=== PATIENT | female | born 1980 | race Caucasian/White ===

== ENCOUNTER → 2016-10-27 | Outpatient (CLI) | payer OTHER ==
[~2016-10-27] MED LIST: MULT-506 PO
[2016-10-27 10:58] LABS: BASO % 0.2 %; BASO ABS # 0.02 K/uL (0-0.2); COMPLETE YES; EOS % 0.6 %; HEMATOCRIT 36.8 % (37-47); IG% 0.3 %; LYMPH % 22.5 %; MEAN CORPUSCULAR HGB CONC 33.7 g/dl (32-36); MEAN PLATELET VOLUME 10.5 fL (7.4-10.4); MONO % 4.3 %; NEUT % 72.1 %; PLATELET COUNT 217 K/uL (130-400)
[2016-10-27 11:38] LABS: GTGD 50 Grams
== END | disposition home or self-care (01) ==
LOC: C.LAB 08:07
PROVIDERS: ATTEND Obstetrics & Gynecology
DX: Z34.82 Encounter for supervision of other normal pregnancy, second trimester (principal)

== ENCOUNTER → 2016-11-16 | Outpatient (CLI) | payer OTHER | END | disposition home or self-care (01) | LOC: C.LAB 08:20 | PROVIDERS: ATTEND Obstetrics & Gynecology | DX: Z34.82 Encounter for supervision of other normal pregnancy, second trimester (principal); Z13.89 Encounter for screening for other disorder ==

== ENCOUNTER → 2017-01-08 | Day surgery (SDC) | payer OTHER ==
[~2017-01-08] VITALS: Ht 149.9 cm; Wt 66.0 kg
[2017-01-08 13:06] VITALS: BP 115/78; PULSE 96; TEMP 36.6; O2SAT 99; Ht 149.9 cm; Wt 66.0 kg
== END | disposition home or self-care (01) ==
LOC: C.MTU 10:31
PROVIDERS: ATTEND Obstetrics & Gynecology
DX: O36.0990 Maternal care for other rhesus isoimmunization, unspecified trimester, not applicable or unspecified (principal); Z3A.00 Weeks of gestation of pregnancy not specified

== ENCOUNTER → 2017-03-04 | Outpatient (CLI) | payer OTHER | END | disposition home or self-care (01) | LOC: C.LABSPEC 17:18 | PROVIDERS: ATTEND Obstetrics & Gynecology | DX: Z34.83 Encounter for supervision of other normal pregnancy, third trimester (principal) ==

== ENCOUNTER 2017-03-26 09:15 | Inpatient (IN) | payer OTHER ==
[~2017-03-26] VITALS: Ht 149.9 cm; Wt 69.5 kg
[2017-03-26 09:57] VITALS: Ht 149.9 cm; Wt 69.5 kg
[2017-03-26] MEDS ORDERED: LACTATED RINGER'S 1000ML 1,000 ML IV PRN (12:18)
[2017-03-26] MEDS ORDERED: MISOPROSTOLTAB 50 MCG TAB PO ONE (12:30)
[2017-03-26 12:44] LABS: MEAN CELL VOLUME 92.8 fL (80-100); MEAN CORPUSCULAR HEMOGLOBIN 30.2 pg (25-34); MEAN CORPUSCULAR HGB CONC 32.6 g/dl (32-36); MEAN PLATELET VOLUME 11.4 fL (7.4-10.4); PLATELET COUNT 179 K/uL (130-400); RED BLOOD COUNT 3.77 M/uL (4.2-5.4)
[2017-03-26] MEDS ORDERED: DINOPROSTONE 10 MG INSERT PV ONE (12:45)
[2017-03-27] MEDS: LACTATED RINGER'S 1000ML 1,000 ML IV SCH ×2 (01:15→04:28)
[2017-03-27] MEDS ORDERED: BUPIVACAINE 0.25% 30 ML VIAL ONE (01:43)
[2017-03-27] MEDS ORDERED: FENTANYL CITRATE INJ 50 MCG/1 ML 2 ML VIAL ONE (01:44)
[2017-03-27] MEDS ORDERED: EpHEDrine SULFATE INJ 50 MG/ML AMP ONE (01:44)
[2017-03-27] MEDS ORDERED: FENTANYL 2MCG/ML ROPIV 1.25MG/ML 100ML BAG EPI ONE (01:44)
[2017-03-27] MEDS ORDERED: LACTATED RINGER'S 1000ML 500 ML IV PRN ×2 (02:19→05:30)
[2017-03-27] MEDS ORDERED: NALOXONE HCL INJ 1 MG in SODIUM CHLORIDE 0.9% 1000ML 1,000 ML IV PRN (02:19)
[2017-03-27] MEDS ORDERED: OXYTOCIN 30 UNITS/500ML NSS IV ONE (02:25)
[2017-03-27] MEDS ORDERED: DiphenhydrAMINE HCL 50 MG/ML VIAL IV PRN (02:30)
[2017-03-27] MEDS ORDERED: NALBUPHINE HCL INJ 10 MG/ML AMP IV PRN (02:30)
[2017-03-27] MEDS ORDERED: NALOXONE HCL INJ 0.4 MG/1 ML VIAL/CARP IV PRN (02:30)
[2017-03-27] MEDS ORDERED: ONDANSETRON INJ 2 MG/ML 2 ML VIAL IV PRN (02:30)
[2017-03-27] MEDS ORDERED: EpHEDrine SULFATE INJ 50 MG/ML AMP IV PRN (02:30)
[2017-03-27] MEDS ORDERED: FENTANYL 2MCG/ML ROPIV 1.25MG/ML 100ML BAG EPI PRN (02:30)
[2017-03-27] MEDS ORDERED: OXYTOCIN 30 UNITS/500ML NSS IV PRN ×2 (05:30→07:15)
[2017-03-27] MEDS ORDERED: ACETAMINOPHEN 325 MG TAB PO PRN (07:15)
[2017-03-27] MEDS ORDERED: BENZOCAINE 20% AER SPR 82.5 GM CAN EXT PRN (07:15)
[2017-03-27] MEDS ORDERED: ACETAMINOPHEN/CODEINE 300/30MG TAB PO PRN ×2 (07:15)
[2017-03-27] MEDS ORDERED: DIPHTHERIA/TETANUS/PERTUSSIS 0.5 ML SYR/VIAL IM. ONE (07:15)
[2017-03-27] MEDS ORDERED: SUPERCREAM 0.870 % 15GM JAR EXT PRN (07:15)
[2017-03-27] MEDS ORDERED: OXYCODONE/ACETAMINOPHEN 5-325 TAB PO PRN (07:15)
[2017-03-27] MEDS ORDERED: HYDROCORTISONE ACETATE 25 MG SUPP PR PRN (07:15)
[2017-03-27] MEDS ORDERED: LANOLIN OINT EXT PRN ×2 (07:15)
[2017-03-27] MEDS: PRENATAL VITAMIN TAB PO SCH (07:41)
[2017-03-27] MEDS: FERROUS SULFATE 325 MG TAB PO SCH (07:41)
[2017-03-27] MEDS: DOCUSATE SODIUM 100 MG CAP PO SCH ×2 (07:41→19:30)
--- NOTE | 2017-03-27 08:33 | Anesthesia Procedure Note ---
Anesthesia Epidural Removal Nt Date & Time Mar 27, 2017 at 08:32 Vital Signs Pain Intensity: 0.0 Notes Mental Status: alert / awake / arousable, participated in evaluation Nausea / Vomiting: adequately controlled Pain: adequately controlled Airway Patency, RR, SpO2: stable & adequate BP & HR: stable & adequate Hydration State: stable & adequate Neuraxial Anesthesia: was administered, sensory block is resolving Anesthetic Complications: no major complications apparent, pt satisfied with anesthetic care Epidural: removed without complications, with tip intact
[2017-03-27 09:35] VITALS: BP 114/72; PULSE 99; TEMP 36.8
--- NOTE | 2017-03-27 10:33 | DELIVERY SUMMARY ---
DATE OF OPERATION: 03/27/2017 CHIEF COMPLAINT: The patient is a 37-year-old 3, para 3. General health is good. Blood type is O negative. She is rubella immune. She has had 2 previous deliveries vaginally, 1 at 38 weeks and 1 at 39 weeks. Her due date for the present is 03/30/2017. When she was over 39 weeks and had not gone into labor she was given the option of induction at about 39-1/2 weeks or waiting to 40+ weeks. She requested induction. The day of admission she was brought in. Monitor revealed a sporadic contractions, so she was given Cervidil tape. Cervidil tape remained in place for 12 hours. After that was removed at the time of the removal she was 6+ cm. Her contractions were hard and painful. She requested and received epidural anesthesia. She obtained good pain relief. After that the next time she was checked, she was an anterior rim at which time membranes were ruptured surgically. Fluid was clear and with about 3 pushes she pushed out a live via direct occiput anterior position over an intact perineum. Delivery was well controlled and smooth. There was a tight nuchal cord which had to be clamped and cut prior to delivery. The child rotated spontaneously into the transverse position for the shoulders to come out then the body was removed without difficulty. Cord was reclamped, cut by the father. Cord blood was taken. With IV Pitocin running, the placenta was removed intact. Inspection of the perineum revealed perineum was intact and bleeding was actually less than 100 mL. My own estimation 1 and 5 minute Apgars were 8 and 9 respectively. The patient tolerated the delivery well. I attest to the content of the Intraoperative Record and any orders documented therein. Any exception s are noted below.
[2017-03-27 11:08] VITALS: BP 116/76; PULSE 94; TEMP 36.8
[2017-03-27 15:15] VITALS: BP 123/81; PULSE 84; TEMP 36.8
[2017-03-27] MEDS: IBUPROFEN 600 MG TAB PO PRN ×2 (15:30→21:07)
[2017-03-27 19:30] VITALS: BP 104/68; PULSE 75; TEMP 36.7
[2017-03-27 23:30] VITALS: BP 102/69; PULSE 72; TEMP 36.7; O2SAT 98
[2017-03-28] MEDS: IBUPROFEN 600 MG TAB PO PRN (03:11)
[2017-03-28 03:25] VITALS: BP 116/64; PULSE 72; TEMP 36.6; O2SAT 98
[2017-03-28 07:18] LABS: HEMATOCRIT 33.6 % (37-47)
[2017-03-28 08:00] VITALS: BP 114/70; PULSE 70; TEMP 36.6; O2SAT 98
[2017-03-28] MEDS: FERROUS SULFATE 325 MG TAB PO SCH (08:51)
[2017-03-28] MEDS: DOCUSATE SODIUM 100 MG CAP PO SCH (08:51)
[2017-03-28] MEDS: PRENATAL VITAMIN TAB PO SCH (08:51)
--- NOTE | 2017-03-28 10:08 | Progress Note ---
Subjective Mar 28, 2017. Subjective conversation w/ patient Ambulation: ambulating normally Voiding: no voiding problems Passing Gas: Yes Diet Tolerance: Regular Diet Lochia: Small Feeding Type: Bottle Feeding Review of Systems Constitutional: + fever Objective Vital Signs Date Time Temp Pulse Resp B/P (MAP) Pulse Ox O2 Delivery O2 Flow Rate FiO2 03/28/17 08:00 36.6 70 18 114/70 (85) 98 Room Air 03/28/17 08:00 98 Room Air 03/28/17 03:25 36.6 72 20 116/64 (81) 98 Room Air 03/27/17 23:30 36.7 72 20 102/69 (80) 98 Room Air 03/27/17 23:30 98 Room Air 03/27/17 19:30 36.7 75 16 104/68 (80) Room Air 03/27/17 15:15 Room Air 03/27/17 15:15 36.8 84 18 123/81 (95) Room Air 03/27/17 11:08 36.8 94 18 116/76 (89) Physical Exam General Appearance: WELL-APPEARING Abdomen: non tender Fundus: Firm, Non-Tender Extremities: no pedal edema, no calf tenderness Laboratory Results Last 24 Hours Test 03/28/17 07:00 Hemoglobin 10.6 g/dL Hematocrit 33.6 % Assessment and Plan Post- Day#: 1
--- NOTE | 2017-03-28 10:11 | Discharge Instructions ---
Discharge Instructions Date of Service Mar 28, 2017. Admission Reason for Admission: Induction Discharge Discharge Diagnosis / Problem: term induction Discharge Goals Goal(s): Routine recovery after delivery Activity Recommendations Activity Limitations: as noted below ACTIVITY RECOMMENDATIONS: * Gradual return to full activity over the next 2-3 weeks. * No lifting - nothing heavier than baby over the next 2-3 weeks. * Do not engage in vigorous exercise, sexual activity or sports until cleared by your physician. * Do not drive or operate any motorized equipment until cleared by your physician. * You may shower/bathe daily. DIET: Resume Previous Diet If Breast-feeding: * Increase caloric intake by 500 calories, eat 3 well balanced meals, 2 high protein snacks a day and drink 6-8 8oz. glasses of fluid per day. BREAST CARE: If you are not breast feeding: * Wear a supportive bra 24 hours a day for one to two weeks. * Avoid stimulating your breasts and nipples as much as possible during the first few weeks after delivery. * When taking a shower, have the warm water hit your back, not breasts. * When your breasts feel full, apply ice packs. Usually three to four times a day helps ease the discomfort. * Take a mild pain medication (Tylenol / Motrin) when you are uncomfortable. If breast feeding: * Use breast milk to lubricate nipples. Lansinoh cream may be used for sore nipples. You do not need to remove cream prior to breast feeding. If using a different brand of cream, check the label for directions regarding removal of cream prior to nursing. * Wear a supportive bra. * If having problems with breasts or breast feeding, call a clinical application consultant or your health care provider. OVER THE COUNTER MEDICATION: * For discomfort or pain, you may use Acetaminophen (Tylenol), Ibuprofen (Advil ), or Naproxen (Aleve) following the package directions. * For constipation you may use Colace following the package directions. SPECIAL CARE INSTRUCTIONS: * Vaginal rest (no tampons, douching, intercourse) until after doctor 's visit. * control as discussed with doctor. * Verbalizes understanding of car seat law as reviewed with patient nursing. * Car Seat hand-out given and reviewed with patient by nursing. * Shaken baby information reviewed with patient by nursing. Call you doctor if: * Temperature greater than or equal to 100.4 degrees F or 38.0 degrees C. Take your temperature twice daily for a week. * Bleeding becomes heavier than the heaviest part of your period - saturating a sanitary pad within an hour. * Passing large clots. * Bleeding has a foul smelling odor. * Signs and symptoms of phlebitis: leg pain, warm, red or swollen area on leg. * "Baby Blues" lasting longer than two weeks. ++ If you have had a and incision has increased pain, redness, swelling, presence of any drainage, or if the incision starts to open up. If you have any questions or concerns, call your health care practitioner at [phone]. FOLLOW-UP VISIT: Please call the office at to schedule a 6 week examination. . Instructions / Follow-Up Instructions / Follow-Up ACTIVITY RECOMMENDATIONS: * Gradual return to full activity over the next 2-3 weeks. * No lifting - nothing heavier than baby over the next 2-3 weeks. * Do not engage in vigorous exercise, sexual activity or sports until cleared by your physician. * Do not drive or operate any motorized equipment until cleared by your physician. * You may shower/bathe daily. DIET: Resume Previous Diet If Breast-feeding: * Increase caloric intake by 500 calories, eat 3 well balanced meals, 2 high protein snacks a day and drink 6-8 8oz. glasses of fluid per day. BREAST CARE: If you are not breast feeding: * Wear a supportive bra 24 hours a day for one to two weeks. * Avoid stimulating your breasts and nipples as much as possible during the first few weeks after delivery. * When taking a shower, have the warm water hit your back, not breasts. * When your breasts feel full, apply ice packs. Usually three to four times a day helps ease the discomfort. * Take a mild pain medication (Tylenol / Motrin) when you are uncomfortable. If breast feeding: * Use breast milk to lubricate nipples. Lansinoh cream may be used for sore nipples. You do not need to remove cream prior to breast feeding. If using a different brand of cream, check the label for directions regarding removal of cream prior to nursing. * Wear a supportive bra. * If having problems with breasts or breast feeding, call a clinical application consultant or your health care provider. OVER THE COUNTER MEDICATION: * For discomfort or pain, you may use Acetaminophen (Tylenol), Ibuprofen (Advil ), or Naproxen (Aleve) following the package directions. * For constipation you may use Colace following the package directions. SPECIAL CARE INSTRUCTIONS: * Vaginal rest (no tampons, douching, intercourse) until after doctor 's visit. * control as discussed with doctor. * Verbalizes understanding of car seat law as reviewed with patient nursing. * Car Seat hand-out given and reviewed with patient by nursing. * Shaken baby information reviewed with patient by nursing. Call you doctor if: * Temperature greater than or equal to 100.4 degrees F or 38.0 degrees C. Take your temperature twice daily for a week. * Bleeding becomes heavier than the heaviest part of your period - saturating a sanitary pad within an hour. * Passing large clots. * Bleeding has a foul smelling odor. * Signs and symptoms of phlebitis: leg pain, warm, red or swollen area on leg. * "Baby Blues" lasting longer than two weeks. ++ If you have had a and incision has increased pain, redness, swelling, presence of any drainage, or if the incision starts to open up. If you have any questions or concerns, call your health care practitioner at [phone]. FOLLOW-UP VISIT: Please call the office at to schedule a 6 week examination. Current Hospital Diet Patient's current hospital diet: Regular Diet Discharge Diet Recommended Diet: Regular Diet Pending Studies Studies pending at discharge: no Medical Emergencies . Who to Call and When: Medical Emergencies: If at any time you feel your situation is an emergency, please call 911 immediately. . Non-Emergent Contact Non-Emergency issues call your: [employer] Call Non-Emergent contact if: temperature is above 100.5 . . "Provider Documentation" section prepared by Caleb Zamudio. . VTE Core Measure Inpt VTE Proph given/why not?: Treatment not indicated
[2017-03-28 11:31] VITALS: BP_DIAS 70; PULSE 70; TEMP 36.6
[2017-03-28] MEDS ORDERED: BISACODYL 5 MG TABEC PO SCH (20:00)
[2017-03-29] MEDS ORDERED: BISACODYL 10 MG SUPP PR PRN (07:00)
== END 2017-03-28 11:50 | disposition home or self-care (01) | DRG 775 ==
LOC: C.LD 09:15 → C.OBG 03-27 10:37
PROVIDERS: ADMIT Obstetrics & Gynecology; ATTEND Obstetrics & Gynecology
PROC: 10E0XZZ Delivery of Products of Conception, External Approach (ICD-10-PCS; principal; 2017-03-27)
PROC: 3E0P7GC Introduction of Other Therapeutic Substance into Female Reproductive, Via Natural or Artificial Opening (ICD-10-PCS; principal; 2017-03-27)
PROC: 10907ZC Drainage of Amniotic Fluid, Therapeutic from Products of Conception, Via Natural or Artificial Opening (ICD-10-PCS; principal; 2017-03-27)
DX: O69.1XX0 Labor and delivery complicated by cord around neck, with compression, not applicable or unspecified (principal); Z37.0 Single live birth; O26.893 Other specified pregnancy related conditions, third trimester; Z3A.39 39 weeks gestation of pregnancy

== ENCOUNTER → 2017-05-06 | Outpatient (CLI) | payer OTHER | END | disposition home or self-care (01) | LOC: C.PAPS 10:54 | PROVIDERS: ATTEND Obstetrics & Gynecology | DX: Z39.2 Encounter for routine postpartum follow-up (principal) ==